=== PATIENT | female | born 2000 | race Two or more races ===

== ENCOUNTER 2024-07-25 19:12 | Emergency (ER) | payer MEDICAID, OTHER ==
[~2024-07-25] VITALS: Ht 142.2 cm; Wt 45.4 kg
[2024-07-25 19:27] VITALS: TEMP 98.1
--- NOTE | 2024-07-25 20:37 | ED.PDOC ---
History of Present Illness HPI Comments 23 y/o F is BIBA from home for c/o LLQ abdominal pain, that radiates to her left-flank and entire left-leg, with associated nausea, vomiting, soft-stools production, urine frequency, fever, chills, and generalized weakness. Patient endorses on symptoms starting, initially, with abdominal pain 1x week ago. Pain began to worsen, progressively, with additional onset of remaining aforementioned symptoms 3x days ago. She reports pain being stabbing in quality and an 8/10 in severity, with no improvement with at-home [place] medication use or 1g Tylenol administration by EMS en route. She is unable to tolerate any foods or liquids, currently. Patient had an initial blood glucose of 96, with a ll remaining vitals stable and within normal limits. Endorse medical history that includes: endometriosis (pending classification s/p upcoming laparoscopy, ovarian cysts, current hernia (pending evaluation), UTI's, kidney stones, migraines, and appendectomy. LMP on July 20, 2024; denies being , currently. Denies any recent travel, injuries, spoiled food intake, sexual activ ities, or further relevant history. Patient denies any dysuria, hematuria, hematemesis, cough, congestion, or further associated symptoms or modifiers. Chief Complaint: Abdominal Pain Time Seen by MD: 19:30 Reviewed Notes: Nurses Notes, Data Entry Specialist Notes, Medications, Allergies Allergies: Coded Allergies: Levofloxacin (Verified Allergy, Unknown, 07/25/24) Information Source: Patient, Emergency Med Personnel Mode of Arrival: EMS Severity: Moderate Timing: Days Duration: Since onset Prehospital treatment: 12 Lead EKG, Accucheck (96), Evaporator Supervisor, Pain Meds (1g Tylenol ) Review of Systems: REVIEW OF SYSTEMS: Fever and chills. No fatigue HEENT: No sore throat, no earache, no congestion, no neck pain. Cardiac: No chest pain. No palpitations. Lungs: No shortness of breath, no cough. GI: LLQ abdominal pain. Nausea and vomiting. Soft-stools production. No diarrhea, no constipation, no abdominal pain : Left-flank pain. Urine frequency. No dysuria, frequency, or urgency. No hematuria. Musculoskeletal: No joint pain , no joint swelling, no extremity edema. Skin: No rash, no itching. Neuro: Generalized weakness. No headache, no dizziness. Vital Signs Vital Signs Date Time Temp Pulse Resp B/P (MAP) Pulse Ox O2 Delivery O2 Flow Rate FiO2 07/25/24 21:48 55 18 103/62 (76) 100 07/25/24 19:27 98.1 98.1 Physical Exam General: Awake, alert and oriented. No acute distress. Skin: Skin in warm, dry and intact. Appropriate color for ethnicity. HEENT: The head is normocephalic and atraumatic. Conjunctivae are clear without exudates or hemorrhage. Sclera is non-icteric. EOM are intact. No signs of nystagmus. Eyelids are normal in appearance without swelling or lesions. Oral mucosa is pink and moist Neck: The neck is supple with normal range of motion. No JVD. Cardiac: Heart rate and rhythm are normal. No murmurs, gallops, or rubs are auscultated. Respiratory: No signs of respiratory distress. Lung sounds are clear in all lobes bilaterally without rales, rhonchi, or wheezes. Abdominal: Generalized abdominal tenderness worse in the left lower quadrant. Otherwise, abdomen is soft, without distention. Bowel sounds are present and normoactive in all four quadrants. Left-CVA tenderness. Extremities: Upper and lower extremities are atraumatic in appearance without deformity or edema. Neurological: The patient is awake, alert and oriented to person, place, and time with normal speech. Speech is clear. There is no facial asymmetry. Psychiatric: Appropriate mood and affect. Good judgement and insight. 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 Was a procedure done?: No Differential Dx Considerations may include: Differential diagnoses considered include: Abdominal aortic aneurysm, OK, esophageal rupture, intestinal obstruction, mesenteric ischemia, perforated viscus or solid organ rupture, CHF with hepatomegaly, pneumonia, abscess, appendicitis, biliary disease, diverticulitis, gastritis, gastroenteritis, hepat itis, hernia, inflammatory bowel disease, pancreatitis, peptic ulcer disease, urinary tract infection, ureteral colic, constipation, GERD, irritable syndrome, abdominal wall pain, nonspecific abdominal pain, herpes zoster. Also ruptured ectopic , ovarian torsion/cyst, tubo-ovarian abscess, PID, endometriosis, mittleschmerz. X-Ray, Labs, Meds, VS Vital Signs Date Time Temp Pulse Resp B/P (MAP) Pulse Ox O2 Delivery O2 Flow Rate FiO2 07/25/24 21:48 55 18 103/62 (76) 100 07/25/24 19:27 98.1 52 14 119/80 (93) 98 98.1 Lab Test 07/25/24 21:54 07/25/24 21:53 07/25/24 20:20 Range/Units Urine Test Negative Negative Urine Color Colorless Yellow Urine Clarity Clear Clear Urine pH 7.0 5.0-9.0 Urine Specific [place] 1.006 1.001-1.035 Urine Protein Negative Negative Urine Ketones Negative Negative Urine Blood Negative Negative /uL Urine Nitrite Negative Negative Urine Bilirubin Negative Negative Urine Urobilinogen Normal Negative mg/dL Urine Leukocyte Esterase Negative Negative /uL Urine RBC <1 0 - 4 /hpf Urine Microscopic WBC 1 0-5 /HPF Urine Squamous Epithelial Cells Few <5 /hpf Urine Bacteria Few H None Seen /hpf Urine Glucose Normal Normal mg/dL White Blood Count 6.3 4.4-10.8 10^3/uL Red Blood Count 4.35 4.0-5.20 10^6/uL Hemoglobin 13.8 12.2-16.2 g/dL Hematocrit 40.8 36.0-46.0 % Mean Corpuscular Volume 94.0 80.0-100.0 fL Mean Corpuscular Hemoglobin 31.7 28.0-32.0 pg Mean Corpuscular Hemoglobin Concent 33.8 32.0-36.0 g/dL Red Cell Distribution Width 15.0 H 11.8-14.3 % Platelet Count 331 140-450 10^3/uL Mean Platelet Volume 6.9 6.9-10.8 fL Neutrophils (%) (Auto) 57.4 37.0-80.0 % Lymphocytes (%) (Auto) 35.1 10.0-50.0 % Monocytes (%) (Auto) 6.3 0.0-12.0 % Eosinophils (%) (Auto) 0.9 0.0-7.0 % Basophils (%) (Auto) 0.3 0.0-2.0 % Neutrophils # (Auto) 3.6 1.6-8.6 10 ^3/uL Lymphocytes # (Auto) 2.2 0.4-5.4 10 ^3/uL Monocytes # (Auto) 0.4 0-1.3 10 ^3/uL Eosinophils # (Auto) 0.1 0-0.8 10 ^3/uL Basophils # (Auto) 0 0-0.2 10 ^3/uL Nucleated Red Blood Cells 0.1 % Sodium Level 140 136-145 mmol/L Potassium Level 4.0 3.5-5.1 mmol/L Chloride Level 105 98-107 mmol/L Carbon Dioxide Level 26 20-31 mmol/L Anion Gap 9 5-15 Blood Urea Nitrogen 9 9-23 mg/dL Creatinine 0.83 0.550-1.02 mg/dL Glomerular Filtration Rate Calc 100 >90 mL/min BUN/Creatinine Ratio 10.8 10.0-20.0 Serum Glucose 98 74-106 mg/dL Calcium Level 10.0 8.7-10.4 mg/dL Total Bilirubin 0.4 0.2-1.0 mg/dL Aspartate Amino Transferase (AST) 22 13-40 U/L Alanine Aminotransferase (ALT) 30 7-40 U/L Alkaline Phosphatase 62 46-116 U/L Total Protein 7.6 5.7-8.2 g/dL Albumin 4.7 3.2-4.8 g/dL Current Medications Medications (Trade) Dose Ordered Sig/Johnson Route Start Time Stop Time Status Last Admin Ketorolac Tromethamine (Toradol Injection) 30 mg ONCE ONCE IV 07/25/24 19:45 07/25/24 19:46 DC 07/25/24 21:41 Ondansetron HCl (Zofran) 4 mg ONCE ONCE IV 07/25/24 19:45 07/25/24 19:46 DC 07/25/24 21:41 Sodium Chloride 1,000 ml @ 1,000 mls/hr Q1H ONCE IV 07/25/24 19:45 07/25/24 20:44 DC 07/25/24 21:41 PROCEDURE(s): ABPLIV - CT AB PEL WITH IV CON ONLY REASON: Left lower quadrant pain ORDER NUMBER(s): [id number], ACCESSION NUMBER(s): [id number] Exam: CT CT AB PEL WITH IV CON ONLY History: Left lower quadrant pain Comparison Study: None Contrast: Type of contrast: Omnipaque 300 Contrast injected: 100 mL Contrast wa sted: 0 TECHNIQUE: A digital die casting machine maintainer image was obtained. During the uneventful, intravenous administration of contrast material, multislice data acquisition was obtained through the abdomen and pelvis. The data set was subsequently reconstructed into axial images. Images were reviewed on a work station using a combination of axial and multiplanar using a variety of window levels and settings. Radiation Dose Information: CT Dose: CTDI volume is 13.02 mGy. Dose-length product is 615.45 mGy*cm FINDINGS: Lung Bases: No acute or significant lung base finding. Normal heart size. No pleural or pericardial effusion. Liver: The liver is normal in size. No focal lesions. Normal hepatic vascular enhancement. Gallbladder and Biliary Tree: Unremarkable Spleen: Unremarkable Pancreas: The pancreas is normal in appearance without focal lesions or abnormal enhancement. Adrenal Glands: Unremarkable Kidneys: Kidneys demonstrate normal symmetric enhancement without focal lesions, calculi or hydronephrosis. Bladder: Unremarkable Bowel: The stomach is grossly normal in appearance. Small bowel and colon are normal in caliber and distribution. The appendix is not visualized; however, no secondary findings of acute appendicitis identified. Ascites: Absent Lymphadenopathy: No mesenteric, retroperitoneal or periportal lymphadenopathy. Abdominal Wall and Mesentery: Unremarkable. Vasculature: The visualized abdominal aorta is normal in size and caliber. Abdominal and pelvic vessels demonstrate normal enhancement. Pelvic Organs: Small amount of free fluid in the cul-de-sac. This may be the result of an involuting follicle. If of clinical concern recommend pelvic ultrasound. Musculoskeletal: No aggressive focal bony lesions, acute fractures or disloca tion. Soft tissues: Unremarkable. IMPRESSION: 1. Small amount of free fluid in the cul-de-sac. 2. If of clinical concern consider pelvic ultrasound for further evaluation. 3. All CT scans at this medical facility are performed using dose modulation techniques as appropriate to a performed exam including the following: Automated exposure control was utilized; adjustment of the MA and/or KV according to patient size; and use of iterative reconstruction technique. ATED BY: JOSSELINE BARRY Jr., DO DICTATED DATE/TIME: 07/25/242246 SIGNED BY: JOSSELINE BARRY Jr., SIGNED DATE/TIME: 07/25/242246PROCEDURE(s): PELUS - PELVIC REASON: Left pelvic pain, free pelvic fluid ORDER NUMBER(s): [id number], ACCESSION NUMBER(s): [id number] TRANSABDOMINAL AND TRANSVAGINAL PELVIC ULTRASOUND CLINICAL HISTORY: Left pelvic pain, free pelvic fluid TECHNIQUE: Multiple grayscale ultrasound images were obtained of the pelvis via transabdominal and transvaginal approach. Limited color Doppler and spectral Doppler acquisitions were also obtained. COMPARISON: None FINDINGS: Uterus: 7.0 x 3.9 x 2.4 cm. The uterine contour is smooth. No myometrial masses are seen. Endometrium: 0.9 cm. No endometrial mass is seen. Right adnexa: right ovary 3.1 x 2.0 x 1.6 cm. Normal arterial blood flow in the ovary. No right adnexal mass seen. Small cyst in the right ovary which measures 9 mm. Left adnexa: left ovary 3.2 x 2.9 x 2.2 cm. Normal arterial blood flow in the ovary. No left adnexal mass seen. Small cyst in the left ovary measures 1.6 cm. Other: Small amount of ascites in the pelvis. IMPRESSION: Unremarkable pelvic ultrasound. ATED BY: TOMAS MONTENEGRO MD DICTATED DATE/TIME: 07/25/242350 SIGNED BY: TOMAS MONTENEGRO MD SIGNED DATE/TIME: 07/25/242350 CC: Time of 1ST Reevaluation: 00:44 Reevaluation 1ST: Unchanged Patient Education/Counseling: Need For Follow Up Family Education/Counseling: No Family Present Departure 1 Departure Time of Disposition: 00:38 Impression: Primary Impression: Pelvic pain Disposition: 01 HOME / SELF CARE / HOMELESS Condition: Stable Additional Instructions: ED DISCHARGE INSTRUCTIONS Instructions: Please read all instructions provided in this packet carefully. Although you have been discharged from the Emergency Department, this does not mean that you have a "clean bill of health". No definitive diagnosis for your symptoms has been made today. It is possible that you are in the process of developing a serious illness. This is why you must return to the ED without fail if any new or worsening symptoms (especially if your symptoms include chest pain, trouble breathing, abdominal pain, fever, headache, confusion, trouble seeing, or trouble walking) It is also very important that you see a primary care doctor within the next 1-3 days to follow up. Keep upcoming appointment with your specialist for further evaluation. If you are unable to get an appointment, return to the ED for re-evaluation. A copy of your CAT scan and ultrasound report is included below. Pelvic Pain: Care Instructions Pelvic pain, or pain in the lower belly, can have many causes. Often pelvic pain is not serious and gets better in a few days. If your pain continues or gets worse, you may need tests and treatment. Tell your doctor about any new symptoms. These may be signs of a serious problem. Follow-up care is a boyce part of your treatment and safety. Be sure to make and go to all appointments, and call your doctor if you are having problems. It's also a good idea to know your test results and keep a list of the medicines you take. How can you care for yourself at home? Rest until you feel better. Lie down, and raise your legs by placing a pillow under your knees. Drink plenty of fluids. You may find that small, frequent sips are easier on your stomach than if you drink a lot at once. Avoid drinks with carbonation or caffeine, such as soda pop, tea, or coffee. Try eating several small meals instead of 2 or 3 large ones. Eat mild foods, such as rice, dry toast or crackers, bananas, and applesauce. Avoid fatty and spicy foods, other fruits, and alcohol until 48 hours after your symptoms have gone away. Take an [id number] pain medicine, such as acetaminophen (Tylenol), ibuprofen (Advil, Motrin), or naproxen (Aleve). Read and follow all instructions on the label. Do not take two or more pain medicines at the same time unless the doctor told you to. Many pain medicines have acetaminophen, which is Tylenol. Too much acetaminophen (Tylenol) can be harmful. You can put a heating pad, a warm cloth, or moist heat on your belly to relieve pain. When should you call your doctor? Call 911 anytime you think you may need emergency care. For example, call if: You passed out (lost consciousness). Contact your doctor now or seek immediate medical care if: You have a new or higher fever. You have unusual vaginal bleeding. You have new or worse belly or pelvic pain. You have vaginal discharge that has increased in amount or smells bad. You are dizzy or lightheaded, or you feel like you may faint. You have symptoms of sepsis, such as: Shortness of breath. Feeling very sick. Severe pain. A fast heart rate. Cool, pale, or clammy skin. Feeling confused. Feeling very sleepy, or you are hard to wake up. Watch closely for changes in your health, and be sure to contact your doctor if: You do not get better as expected. Credits for Pelvic Pain: Care Instructions Current as of: July 14, 2023 Author: [employer] Staff Clinical Review Board All [employer] education is reviewed by a team that includes physicians, nurses, advanced practitioners, registered dieticians, and other healthcare professionals. PROCEDURE(s): ABPLIV - CT AB PEL WITH IV CON ONLY REASON: Left lower quadrant pain ORDER NUMBER(s): [id number], ACCESSION NUMBER(s): [id number] Exam: CT CT AB PEL WITH IV CON ONLY History: Left lower quadrant pain Comparison Study: None Contrast: Type of contrast: Omnipaque 300 Contrast injected: 100 mL Contrast wasted: 0 TECHNIQUE: A digital die casting machine maintainer image was obtained. During the uneventful, intravenous administration of contrast material, multislice data acquisition was obtained through the abdomen and pelvis. The data set was subsequently reconstructed into axial images. Images were reviewed on a work station using a combination of axial and multiplanar using a variety of window levels and settings. Radiation Dose Information: CT Dose: CTDI volume is 13.02 mGy. Dose-length product is 615.45 mGy*cm FINDINGS: Lung Bases: No acute or significant lung base finding. Normal heart size. No pleural or pericardial effusion. Liver: The liver is normal in size. No focal lesions. Normal hepatic vascular enhancement. Gallbladder and Biliary Tree: Unremarkable Spleen: Unremarkable Pancreas: The pancreas is normal in appearance without focal lesions or abnormal enhancement. Adrenal Glands: Unremarkable Kidneys: Kidneys demonstrate normal symmetric enhancement without focal lesions, calculi or hydronephrosis. Bladder: Unremarkable Bowel: The stomach is grossly normal in appearance. Small bowel and colon are normal in caliber and distribution. The appendix is not visualized; however, no secondary findings of acute appendicitis identified. Ascites: Absent Lymphadenopathy: No mesenteric, retroperitoneal or periportal lymphadenopathy. Abdominal Wall and Mesentery: Unremarkable. Vasculature: The visualized abdominal aorta is normal in size and caliber. Abdominal and pelvic vessels demonstrate normal enhancement. Pelvic Organs: Small amount of free fluid in the cul-de-sac. This may be the result of an involuting follicle. If of clinical concern recommend pelvic ultrasound. Musculoskeletal: No aggressive focal bony lesions, acute fractures or dislocation. Soft tissues: Unremarkable. IMPRESSION: 1. Small amount of free fluid in the cul-de-sac. 2. If of clinical concern consider pelvic ultrasound for further evaluation. 3. All CT scans at this medical facility are performed using dose modulation techniques as appropriate to a performed exam including the following: Automated exposure control was utilized; adjustment of the MA and/or KV according to patient size; and use of iterative reconstruction technique. ATED BY: JOSSELINE BARRY Jr., DO DICTATED DATE/TIME: 07/25/242246 SIGNED BY: JOSSELINE BARRY Jr., SIGNED DATE/TIME: 07/25/242246PROCEDURE(s): PELUS - PELVIC REASON: Left pelvic pain, free pelvic fluid ORDER NUMBER(s): [id number], ACCESSION NUMBER(s): [id number] TRANSABDOMINAL AND TRANSVAGINAL PELVIC ULTRASOUND CLINICAL HISTORY: Left pelvic pain, free pelvic fluid TECHNIQUE: Multiple grayscale ultrasound images were obtained of the pelvis via transabdominal and transvaginal approach. Limited color Doppler and spectral Doppler acquisitions were also obtained. COMPARISON: None FINDINGS: Uterus: 7.0 x 3.9 x 2.4 cm. The uterine contour is smooth. No myometrial masses are seen. Endometrium: 0.9 cm. No endometrial mass is seen. Right adnexa: right ovary 3.1 x 2.0 x 1.6 cm. Normal arterial blood flow in the ovary. No right adnexal mass seen. Small cyst in the right ovary which measures 9 mm. Left adnexa: left ovary 3.2 x 2.9 x 2.2 cm. Normal arterial blood flow in the ovary. No left adnexal mass seen. Small cyst in the left ovary measures 1.6 cm. Other: Small amount of ascites in the pelvis. IMPRESSION: Unremarkable pelvic ultrasound. ATED BY: TOMAS MONTENEGRO MD DICTATED DATE/TIME: 07/25/242350 SIGNED BY: TOMAS MONTENEGRO MD SIGNED DATE/TIME: 07/25/242350 CC: Comments 23-year-old female who presents with recurrent abdominal/pelvic pain.. No peritoneal signs on abdominal exam. No evidence of acute abdomen at this time. patient is well appearing. Labs show no leukocytosis or elevation of LFTs. Imaging shows no acute process. Patient is afebrile. Patient is not hypotensive. Low suspicion for acute hepatobiliary disease (including acute cholecystitis, acute pancreatitis, PUD (including perforation), acute infectious process (pneumonia, hepatitis, pyelonephritis), acute appendicitis, vascular catastrophe, bowel obstructions, viscous perforation. Presentation not consistent with other acute, emergent causes of abdominal pain at this time. Patient felt safe for discharge home. Patient well-appearing, nontoxic. Advised prompt follow-up with PCP, return to the ED with any new, worsening or concerning symptoms. Extensive evaluation was performed in attempt to identify or rule out: (See differential diagnosis section) The following tests were ordered, and results were reviewed by me and discussed with patient: (See diagnostic results section) The following test were independently interpreted by me: N/A I reviewed and agreed with the following test results read by other providers: N/A I reviewed the following notes from the pt's past medical encounters: N/A Additional information was gathered from interviewing the following independent historians: EMS personnel Drug therapy requiring intensive monitoring for toxicity: IV contrast Parenteral controlled substances: IV morphine Decision regarding elective major surgery with identified patient or procedure risk factors: N/A Decision regarding emergency major surgery: N/A Decision not to resuscitate or to de-escalate care because of poor prognosis: N/A Diagnosis or treatment significantly limited by social determinants of health: N/A Decision regarding hospitalization or escalation of hospital level of care: Risks and benefits of admission for further treatment of patient's condition was considered however due to patient's stable condition patient will be discharged to follow up closely or return to care for worsening of condition or inability to follow up. Critical Care Note Critical Care Time?: No Stability Stability form required: No Heart Score Heart Score: Heart Score Response (Comments) Value History N/A 0 EKG N/A 0 Age N/A 0 Risk Factors N/A 0 Troponin N/A 0 Total 0 I personally scribed for HERRERA CARUSO MD ([email or web address]) on 07/25/24 at 20:37. Electronically submitted by Sukhwinder Juan ([email or web address]). HERRERA CARUSO MD July 25, 2024 20:37
[2024-07-25 21:01] LABS: Basophils # (auto) 0 10 ^3/uL (0-0.2); Basophils % (auto) 0.3 % (0.0-2.0); Eosinophils # (auto) 0.1 10 ^3/uL (0-0.8); Eosinophils % (auto) 0.9 % (0.0-7.0); Hematocrit 40.8 % (36.0-46.0); Hemoglobin 13.8 g/dL (12.2-16.2); Lymphocytes # (auto) 2.2 10 ^3/uL (0.4-5.4); Lymphocytes % (auto) 35.1 % (10.0-50.0); Mean Corpuscular Hemoglobin 31.7 pg (28.0-32.0); Mean Corpuscular Hgb Conc. 33.8 g/dL (32.0-36.0); Monocytes # (auto) 0.4 10 ^3/uL (0-1.3); Monocytes % (auto) 6.3 % (0.0-12.0); Neutrophils # (auto) 3.6 10 ^3/uL (1.6-8.6); Neutrophils % (auto) 57.4 % (37.0-80.0); Nucleated Red Blood Cells % 0.1 %; Platelet Count (auto) 331 10^3/uL (140-450); Red Blood Cells 4.35 10^6/uL (4.0-5.20); White Blood Cell 6.3 10^3/uL (4.4-10.8)
[2024-07-25 21:16] LABS: Alanine Aminotransferase 30 U/L (7-40); Albumin 4.7 g/dL (3.2-4.8); Alkaline Phosphatase 62 U/L (46-116); Anion Gap 9 (5-15); Aspartate Aminotransferase 22 U/L (13-40); BUN/Creatinine Ratio 10.8 (10.0-20.0); Bilirubin, Total 0.4 mg/dL (0.2-1.0); Carbon Dioxide 26 mmol/L (20-31); Chloride 105 mmol/L (98-107); Glucose 98 mg/dL (74-106); Sodium 140 mmol/L (136-145); Total Protein 7.6 g/dL (5.7-8.2)
[2024-07-25 21:20] LABS: Blood Urea Nitrogen 9 mg/dL (9-23)
[2024-07-25] MEDS: SODIUM CHLORIDE 0.9% 1,000 ML IV ONE (21:41)
[2024-07-25] MEDS: KETOROLAC TROMETH 30 MG/ML 1ML VIAL IV ONE (21:41)
[2024-07-25] MEDS: ONDANSETRON HCL 4 MG/2 ML VIAL IV ONE (21:41)
[2024-07-25 21:48] VITALS: BP 103/62; PULSE 55; RESP 18
[2024-07-25 22:05] LABS: Urine Bacteria FEW /hpf (None Seen); Urine Blood Negative /uL (Negative); Urine Clarity Clear (Clear); Urine Color Colorless (Yellow); Urine Protein, UAD Negative (Negative); Urine Specific Gravity 1.006 (1.001-1.035); Urine Squamous Epithelial Cell FEW /hpf (<5); Urine Urobilinogen Normal (Negative); Urine WBC 1 /HPF (0-5)
[2024-07-25] MEDS: IOHEXOL 300 MG/ML 100ML BOTTLE IJ ONE (22:47)
--- NOTE | 2024-07-25 22:49 | DVH ---
Exam: CT CT AB PEL WITH IV CON ONLY History: Left lower quadrant pain Comparison Study: None Contrast: Type of contrast: Omnipaque 300 Contrast injected: 100 mL Contrast wasted: 0 TECHNIQUE: A digital integrated specialist image was obtained. During the uneventful, intravenous administration of c ontrast material, multislice data acquisition was obtained through the abdomen and pelvis. The data s et was subsequently reconstructed into axial images. Images were reviewed on a work station using a c ombination of axial and multiplanar using a variety of window levels and settings. Radiation Dose Information: CT Dose: CTDI volume is 13.02 mGy. Dose-length product is 615.45 mGy*cm FINDINGS: Lung Bases: No acute or significant lung base finding. Normal heart size. No pleural or pericardial effusion. Liver: The liver is normal in size. No focal lesions. Normal hepatic vascular enhancement. Gallbladder and Biliary Tree: Unremarkable Spleen: Unremarkable Pancreas: The pancreas is normal in appearance without focal lesions or abnormal enhancement. Adrenal Glands: Unremarkable Kidneys: Kidneys demonstrate normal symmetric enhancement without focal lesions, calculi or hydroneph rosis. Bladder: Unremarkable Bowel: The stomach is grossly normal in appearance. Small bowel and colon are normal in caliber and d istribution. The appendix is not visualized; however, no secondary findings of acute appendicitis kacey ntified. Ascites: Absent Lymphadenopathy: No mesenteric, retroperitoneal or periportal lymphadenopathy. Abdominal Wall and Mesentery: Unremarkable. Vasculature: The visualized abdominal aorta is normal in size and caliber. Abdominal and pelvic vess els demonstrate normal enhancement. Pelvic Organs: Small amount of free fluid in the cul-de-sac. This may be the result of an involuting follicle. If of clinical concern recommend pelvic ultrasound. Musculoskeletal: No aggressive focal bony lesions, acute fractures or dislocation. Soft tissues: Unremarkable. IMPRESSION: 1. Small amount of free fluid in the cul-de-sac. 2. If of clinical concern consider pelvic ultrasound for further evaluation. 3. All CT scans at this medical facility are performed using dose modulation techniques as appropriat e to a performed exam including the following: Automated exposure control was utilized; adjustment of the MA and/or KV according to patient size; and use of iterative reconstruction technique.
--- NOTE | 2024-07-25 23:53 | DVH ---
TRANSABDOMINAL AND TRANSVAGINAL PELVIC ULTRASOUND CLINICAL HISTORY: Left pelvic pain, free pelvic fluid TECHNIQUE: Multiple grayscale ultrasound images were obtained of the pelvis via transabdominal and tr ansvaginal approach. Limited color Doppler and spectral Doppler acquisitions were also obtained. COMPARISON: None FINDINGS: Uterus: 7.0 x 3.9 x 2.4 cm. The uterine contour is smooth. No myometrial masses are seen. Endometrium: 0.9 cm. No endometrial mass is seen. Right adnexa: right ovary 3.1 x 2.0 x 1.6 cm. Normal arterial blood flow in the ovary. No right adnex al mass seen. Small cyst in the right ovary which measures 9 mm. Left adnexa: left ovary 3.2 x 2.9 x 2.2 cm. Normal arterial blood flow in the ovary. No left adnexal mass seen. Small cyst in the left ovary measures 1.6 cm. Other: Small amount of ascites in the pelvis. IMPRESSION: Unremarkable pelvic ultrasound.
[2024-07-26 01:13] VITALS: O2SAT 96
[2024-07-26] MEDS: MORPHINE SULFATE INJ 2 MG/ml SYRG IV ONE (01:15)
== END 2024-07-26 01:14 | disposition home or self-care (01) ==
LOC: ER 19:12 → EDBD 19:12 → ER 07-26 01:14
DX: R10.2 Pelvic and perineal pain (principal); E86.0 Dehydration; G43.909 Migraine, unspecified, not intractable, without status migrainosus; Z87.440 Personal history of urinary (tract) infections; Z90.49 Acquired absence of other specified parts of digestive tract; Z87.442 Personal history of urinary calculi; Z88.1 Allergy status to other antibiotic agents
CPT/HCPCS: 36415; 74177; 76830; 76856; 80053; 81001; 81025; 85025; 96361; 96374; 96375; 99285; J1885; J2405; J7030; Q9967